=== PATIENT | female | born 1995 | race Two or more races ===

== ENCOUNTER 2020-04-24 00:24 | Emergency (ER) | payer MEDICAID ==
[~2020-04-24] VITALS: Ht 165.1 cm; Wt 53.0 kg
[2020-04-24] MEDS ORDERED: PREN1TAB60 PO (00:32)
--- NOTE | 2020-04-24 00:35 | NUR ---
BIBA FROM HOME FOR POSSIBLE WITNESSED SEIZURE PER GRANDMOTHER, NO KNOWN HX OF SEIZURES. PT IS 7 WEEKS . PLACED ON CARDIAC AND VITAL SIGNS MONITORS. SAFETY FALL PRECAUTIONS AND SEIZURE PADS PLACED ON GURNEY. GRANDMOTHER AT BEDSIDE.
--- NOTE | 2020-04-24 00:40 | NUR ---
PT TO CT.
--- NOTE | 2020-04-24 01:06 | NUR ---
URINE SAMPLE COLLECTED. LAB AT BEDSIDE.
--- NOTE | 2020-04-24 01:14 | NUR ---
urine specimen collected and walked to lab
[2020-04-24 01:23] LABS: BASOPHILS # (AUTO) 0.07 x10^3/uL (0-0.1); BASOPHILS % (AUTO) 1 % (0-1); EOSINOPHILS # (AUTO) 0.01 x10^3/uL (0-0.4); EOSINOPHILS % (AUTO) 0 % (1-7); LYMPHOCYTES # (AUTO) 1.84 x10^3/uL (1-3.4); LYMPHOCYTES % (AUTO) 19 % (22-44); MD NO; MEAN CORPUSCULAR HEMOGLOBIN 28.5 pg (27.0-34.8); MEAN CORPUSCULAR HGB CONC 33.3 g/dL (32.4-35.8); MEAN CORPUSCULAR VOLUME 85.4 fL (80-100); MEAN PLATELET VOLUME 8.3 fL (7.4-10.4); MONOCYTES # (AUTO) 0.63 x10^3/uL (0.2-0.8); MONOCYTES % (AUTO) 7 % (2-9); NEUTROPHILS # (AUTO) 6.96 x10^3/uL (1.8-6.8); NEUTROPHILS % (AUTO) 73 % (42-75); PLATELET COUNT 295 x10^3/uL (130-400); RED BLOOD COUNT 4.39 x10^6/uL (3.82-5.3); RED CELL DISTRIBUTION WIDTH 12.7 % (9.6-15.2)
[2020-04-24 01:25] LABS: AMPHETAMINE SCREEN, URINE Negative (Negative); BARBITURATE SCREEN, URINE Negative (Negative); BENZODIAZEPINE SCREEN, URINE Negative (Negative); CANNABINOID SCREEN, URINE Negative (Negative); COCAINE SCREEN, URINE Negative (Negative); METHADONE SCREEN, URINE Negative (Negative); OPIATE SCREEN, URINE Negative (Negative)
[2020-04-24 01:26] LABS: ALANINE AMINOTRANSFERASE 15 U/L (12-78); ALBUMIN 3.7 g/dL (3.4-5.0); ANION GAP 10 mmol/L (5-15); CALCIUM 8.7 mg/dL (8.5-10.1); CHLORIDE 107 mmol/L (98-107)
[2020-04-24 01:29] LABS: MICROSCOPIC INDICATED
[2020-04-24] MEDS ORDERED: DIPHENHYDRAMINE 50 MG/ML, 1ML IVPush ONE (01:30)
[2020-04-24] MEDS ORDERED: DIPHENHYDRAMINE 50 MG/ML, 1ML ONE (01:35)
[2020-04-24 01:44] LABS: ALKALINE PHOSPHATASE 45 U/L (45-117); BILIRUBIN,TOTAL 0.3 mg/dL (0.2-1.0); CREATININE 0.66 mg/dL (0.55-1.02); TOTAL PROTEIN 7.1 g/dL (6.4-8.2)
--- NOTE | 2020-04-24 01:51 | NUR ---
PT'S GRANDMOTHER REPORTS SHE BELIEVES PT HAS "A LOT OF BACK PAIN" PER GRANDMOTHER PT HAD BACK PROBLEMS AFTER HER FIRST BABY WAS DELIVERED FROM [facility] 5 YEARS AGO. UPDATED ERP.
--- NOTE | 2020-04-24 02:57 | NUR ---
PT VERBALIZED SHE IS " I'M DIZZY" AND HAS " JUST A LITTLE BIT" OF PAIN ON LEFT SIDE OF ABD. UPDATED ERP.
[2020-04-24 03:40] VITALS: BP 104/48
--- NOTE | 2020-04-24 03:42 | NUR ---
PT REPORTS SHE IS CONSTIPATED LAST BM 1 WEEK AGO, UPDATED ERP.
== END 2020-04-24 04:10 | disposition home or self-care (01) ==
LOC: ED 01:06
DX: O99.341 Other mental disorders complicating pregnancy, first trimester (principal); O99.411 Diseases of the circulatory system complicating pregnancy, first trimester; F44.89 Other dissociative and conversion disorders; R00.0 Tachycardia, unspecified; Z3A.08 8 weeks gestation of pregnancy
CPT/HCPCS: 36415; 76801; 80053; 80307; 81001; 84702; 85025; 87086; 93005; 96374; 99285; J1200